=== PATIENT | female | born 1950 | race Caucasian/White ===

== ENCOUNTER → 2024-04-30 | Emergency (ER) | payer OTHER ==
[~2024-04-30] VITALS: Ht 149.9 cm; Wt 70.9 kg
[2024-04-30 15:43] VITALS: BP 160/90; PULSE 98; RESP 18; TEMP 98.3; O2SAT 97
[2024-04-30] MEDS: OXYMETAZOLINE HCL 0.05% 15 ML NASAL SPRAY NASAL ONE (15:57)
== END | disposition left against medical advice (07) ==
LOC: EMS 15:40
DX: R04.0 Epistaxis (principal); E11.9 Type 2 diabetes mellitus without complications
CPT/HCPCS: 99282; Z7502; Z7610